=== PATIENT | female | born 1985 | race Caucasian/White ===

== ENCOUNTER 2020-02-20 11:01 | Outpatient (CLI) | payer OTHER | END 2020-02-20 12:21 | disposition home or self-care (01) | LOC: D.LDO 11:01 | PROVIDERS: ATTEND Student in an Organized Health Care Education/Training Program | DX: O36.5990 Maternal care for other known or suspected poor fetal growth, unspecified trimester, not applicable or unspecified (principal); Z3A.00 Weeks of gestation of pregnancy not specified ==

== ENCOUNTER 2020-02-27 11:18 | Outpatient (CLI) | payer OTHER | END 2020-02-27 12:08 | disposition home or self-care (01) | LOC: D.LDO 11:18 | PROVIDERS: ATTEND Student in an Organized Health Care Education/Training Program | DX: O36.5930 Maternal care for other known or suspected poor fetal growth, third trimester, not applicable or unspecified (principal); Z3A.29 29 weeks gestation of pregnancy ==

== ENCOUNTER → 2020-03-05 12:09 | Outpatient (CLI) | payer OTHER | END | disposition home or self-care (01) | LOC: D.LDO 12:09 | PROVIDERS: ATTEND Student in an Organized Health Care Education/Training Program | DX: O36.5990 Maternal care for other known or suspected poor fetal growth, unspecified trimester, not applicable or unspecified (principal) ==

== ENCOUNTER 2020-03-12 13:56 | Outpatient (CLI) | payer OTHER | END 2020-03-12 14:00 | disposition home or self-care (01) | LOC: D.LDO 13:56 | PROVIDERS: ATTEND Student in an Organized Health Care Education/Training Program | DX: O36.5990 Maternal care for other known or suspected poor fetal growth, unspecified trimester, not applicable or unspecified (principal) ==

== ENCOUNTER 2020-03-19 13:21 | Outpatient (CLI) | payer OTHER | END 2020-03-19 13:36 | disposition home or self-care (01) | LOC: D.LDO 13:21 | PROVIDERS: ATTEND Student in an Organized Health Care Education/Training Program | DX: O36.5930 Maternal care for other known or suspected poor fetal growth, third trimester, not applicable or unspecified (principal); Z3A.32 32 weeks gestation of pregnancy ==

== ENCOUNTER 2020-03-26 12:10 | Outpatient (CLI) | payer OTHER | END 2020-03-26 12:31 | disposition home or self-care (01) | LOC: D.LDO 12:10 | PROVIDERS: ATTEND Student in an Organized Health Care Education/Training Program | DX: O36.5990 Maternal care for other known or suspected poor fetal growth, unspecified trimester, not applicable or unspecified (principal) ==

== ENCOUNTER 2020-04-02 12:35 | Outpatient (CLI) | payer OTHER | END 2020-04-02 12:45 | disposition home or self-care (01) | LOC: D.LDO 12:35 | PROVIDERS: ATTEND Obstetrics & Gynecology | DX: O36.5990 Maternal care for other known or suspected poor fetal growth, unspecified trimester, not applicable or unspecified (principal) ==

== ENCOUNTER 2020-04-09 11:38 | Outpatient (CLI) | payer OTHER | END 2020-04-09 13:48 | disposition home or self-care (01) | LOC: D.LDO 11:38 | PROVIDERS: ATTEND Student in an Organized Health Care Education/Training Program | DX: O36.5990 Maternal care for other known or suspected poor fetal growth, unspecified trimester, not applicable or unspecified (principal) ==

== ENCOUNTER 2020-09-13 13:17 | Outpatient (CLI) | payer OTHER | END 2020-09-13 23:59 | disposition home or self-care (01) | LOC: D.MAMMO 13:17 | PROVIDERS: ATTEND Family Medicine | DX: Z12.31 Encounter for screening mammogram for malignant neoplasm of breast (principal); R22.9 Localized swelling, mass and lump, unspecified ==